=== PATIENT | female | born 1935 | race Caucasian/White ===

== ENCOUNTER 2020-11-22 18:53 | Emergency (ER) | payer OTHER, MEDICARE ==
[2020-11-22] MEDS ORDERED: MORPHINE 2 MG/ML SYR ONE ×2 (19:52→23:30)
[2020-11-22] MEDS ORDERED: ONDANSETRON 4 MG/2 ML VIAL ONE (19:52)
--- NOTE | 2020-11-22 20:25 | RAD REPORT ---
EXAM DESCRIPTION: CT - Head C Spine Mpr Wo Con - 11/22/2020 8:06 pm CLINICAL HISTORY: Head and neck injury status post fall. Head and neck pain COMPARISON: None. TECHNIQUE: Computed axial tomography of the head and cervical spine was obtained. Sagittal and coronal reconstruction was performed. All CT scans are performed using dose optimization technique as appropriate and may include automated exposure control or mA/KV adjustment according to patient size. FINDINGS: Examination is somewhat limited secondary to difficulty with patient positioning. Significant cerebral atrophy is present. An intracranial bleed is not seen. The ventricles are normal in caliber. An extra-axial fluid collect ion is not noted.Fluid within the visualized sinuses and mastoids is not seen A cervical fracture is not visualized. No dislocation is noted. IMPRESSION: No acute intracranial abnormality is seen. A cervical fracture is not visualized. If the patient continues to have symptoms to suggest intracra nial /spinal cord pathology then MRI would be recommended
[2020-11-22 20:26] LABS: Absolute Lymphocytes (CBC) 2.7 K/uL (0.7-4.9); Basophils % 0.5 % (0-1.3); Lymphocytes % 19.8 % (15.3-44.8); MPV 8.7 fL (7.6-11.3)
[2020-11-22 20:28] LABS: Protime INR 1.11
[2020-11-22 20:30] LABS: ALT/SGPT 25 U/L (12-78); AST/SGOT 23 U/L (15-37); Albumin 2.4 g/dL (3.4-5.0); Alkaline Phosphatase 102 U/L (45-117); BUN Blood Urea Nitrogen 20 mg/dL (7-18); Bicarbonate 28 mmol/L (21-32); Bilirubin Direct 0.1 mg/dL (0-0.2); Bilirubin Total 0.5 mg/dL (0.2-1.0); Glucose Level 118 mg/dL (74-106); Protein, Total 6.9 g/dL (6.4-8.2); Sodium Level 147 mmol/L (136-145)
--- NOTE | 2020-11-22 20:54 | RAD REPORT ---
EXAM DESCRIPTION: Familia Single View11/22/2020 8:47 pm CLINICAL HISTORY: Chest pain COMPARISON: none FINDINGS: The lungs appear clear of acute infiltrate. The heart is borderline enlarged IMPRESSION: No acute abnormalities displayed
--- NOTE | 2020-11-22 20:54 | RAD REPORT ---
EXAM DESCRIPTION: RAD - Femur Left - 11/22/2020 8:47 pm CLINICAL HISTORY: Leg pain FINDINGS: Limited exam due to difficulty with patient positioning. Comminuted fracture distal femur would marked displacement of fracture fragments
--- NOTE | 2020-11-22 20:55 | RAD REPORT ---
EXAM DESCRIPTION: RAD - Pelvis - 11/22/2020 8:47 pm CLINICAL HISTORY: Pelvic pain FINDINGS: No fracture or dislocation is seen. Right femoral prosthesis is in good position. Osteoporosis lateral aspect of the left iliac crest is not included in the field of view and is not e valuated
--- NOTE | 2020-11-22 20:56 | RAD REPORT ---
EXAM DESCRIPTION: Red Arthur Left11/22/2020 8:48 pm CLINICAL HISTORY: Left leg pain status post injury FINDINGS: Exam is limited secondary to difficulty with patient positioning. Osteoporosis No acute fracture seen
--- NOTE | 2020-11-22 20:58 | RAD REPORT ---
EXAM DESCRIPTION: RAD - Foot Left 2 View - 11/22/2020 8:50 pm CLINICAL HISTORY: Left Foot pain FINDINGS: No fracture or dislocation is seen. Osteoporosis
--- NOTE | 2020-11-23 00:15 | ER ---
Nurse's Notes [facility] Name: Katalina Piña Age: 85 yrs Sex: Female : 1935 Arrival Date: 11/22/2020 Time: 18:57 Bed 3 Private MD: Diagnosis: Fall;Distal Femur Fracture, Left Presentation: 11/22 19:17 Chief complaint: EMS states: Left Femur Fracture. Coronavirus screen: Client denies ld1 travel out of the [place] in the last 14 days. At this time, the client does not indicate any symptoms associated with coronavirus-19. Ebola Screen: No symptoms or risks identified at this time. Initial Sepsis Screen: Does the patient meet any 2 criteria? Does the patient have a suspected source of infection? No. Patient's initial sepsis screen is negative. Risk Assessment: Do you want to hurt yourself or someone else? Patient reports no desire to harm self or others. Onset of symptoms was November 22, 2020. 19:17 Method Of Arrival: EMS: [facility] ld1 19:17 Acuity: MILANA 2 ld1 Triage Assessment: 19:17 General: Appears in no apparent distress. uncomfortable, Behavior is cooperative, ld1 appropriate for age, anxious. Pain: Unable to use pain scale. Patient is disoriented. EENT: No signs and/or symptoms were reported regarding the EENT system. Neuro: Level of Consciousness is awake, confused, Oriented to none. Cardiovascular: Capillary refill < 3 seconds Patient's skin is warm and dry. Respiratory: Airway is patent Respiratory effort is even, unlabored, Respiratory pattern is regular, symmetrical. GI: Abdomen is flat, non-distended. : No signs and/or symptoms were reported regarding the genitourinary system. Derm: No signs and/or symptoms reported regarding the dermatologic system. Musculoskeletal: No signs and/or symptoms reported regarding the musculoskeletal system. Historical: - Allergies: 19:00 No Known Allergies; jb4 - Home Meds: 21:10 duloxetine 60 mg oral cpDR [Active]; lactulose 10 gram/15 mL (15 mL) Oral soln jb4 [Active]; carvedilol 12.5 mg oral tab [Active]; mirtazapine 15 mg Oral TbDL [Active]; acetaminophen-codeine 300-30 mg Oral tab [Active]; - PMHx: 21:10 Alzheimers; Hypertension; jb4 - PSHx: 21:10 None; jb4 - Immunization history:: Adult Immunizations up to date. - Social history:: Smoking status: Patient denies any tobacco usage or history of. Screenin:00 Abuse screen: Denies threats or abuse. Nutritional screening: No deficits noted. jb4 Tuberculosis screening: No symptoms or risk factors identified. Fall Risk None identified. Assessment: 19:00 General: Appears in no apparent distress. uncomfortable, slender, Behavior is restless. jb4 Pain: Unable to use pain scale. Patient is disoriented. FLACC scale score is 8 out of 10. Neuro: Level of Consciousness is awake, Oriented to none. Cardiovascular: Patient's skin is warm and dry. Respiratory: Airway is patent Respiratory effort is even, unlabored, Respiratory pattern is regular, symmetrical. GI: No signs and/or symptoms were reported involving the gastrointestinal system. : No signs and/or symptoms were reported regarding the genitourinary system. EENT: No signs and/or symptoms were reported regarding the EENT system. Derm: Skin is intact, Skin is pink, warm \T\ dry. Musculoskeletal: Circulation, motion, and sensation intact. Range of motion: limited in all extremities, Swelling present in Left lower extremity above the knee. 19:00 Injury Description: Bruise sustained to left ankle. jb4 19:30 Reassessment: PT to Radiology. jb4 20:49 Reassessment: PT remains in radiology. jb4 21:15 Reassessment: Pt remains A\T\Ox0, remains non verbal, daughter remains at the bedside. jb4 Respiration are even and unlabored with no s/s of distress noted. 22:30 Reassessment: Patient appears in no apparent distress at this time. No changes from jb4 previously documented assessment. Patient and/or family updated on plan of care and expected duration. Pain level reassessed. 23:30 Reassessment: Patient appears in no apparent distress at this time. No changes from jb4 previously documented assessment. Patient and/or family updated on plan of care and expected duration. Pain level reassessed. 11/23 00:30 Reassessment: PT is resting with eyes closed, respirations are even and unlabored. No jb4 s/s of pain or distress noted. Vital Signs: 11/22 19:17 BP 129 / 96; Pulse 79; Resp 18; Pulse Ox 100% on R/A; ld1 21:16 BP 140 / 60; Pulse 88; Resp 18; Pulse Ox 94% on R/A; jb4 22:00 BP 130 / 52; Pulse 85; Resp 18; Temp 96.9(TE); Pulse Ox 91% on R/A; jb4 23:00 BP 136 / 93; Pulse 82; Resp 16; Pulse Ox 91% on R/A; jb4 11/23 00:00 BP 121 / 52; Pulse 80; Resp 18; Pulse Ox 99% on 2 lpm NC; jb4 ED Course: 11/22 18:57 Patient arrived in ED. ll1 19:00 Patient has correct armband on for positive identification. Bed in low position. Call jb4 light in reach. Side rails up X 1. Pulse ox on. NIBP on. 19:01 Reginald Vargas MD is Attending Physician. 7 19:17 Arm band placed on right wrist. ld1 19:21 Triage completed. ld1 19:55 Inserted saline lock: 20 gauge in right forearm, using aseptic technique. Blood oe collected. 20:06 CT Head C Spine In Process Unspecified. EDMS 20:35 Curtis Fulton, RN is Primary Nurse. jb4 20:48 XRAY Chest (1 view) In Process Unspecified. EDMS 20:48 XRAY Pelvis In Process Unspecified. EDMS 20:48 Femur Left XRAY In Process Unspecified. EDMS 20:48 Tib Fib Left XRAY In Process Unspecified. EDMS 20:50 Foot Left 2 View In Process Unspecified. EDMS 23:49 Orthoglass splint: Posterior long leg splint applied on left leg. oe 11/23 03:00 No provider procedures requiring assistance completed. Patient transferred, IV remains jb4 in place. Administered Medications: 11/22 19:50 Drug: Zofran (Ondansetron) 4 mg Route: IVP; Site: right forearm; jb4 19:53 Drug: morphine 2 mg Route: IVP; Site: right forearm; jb4 23:14 Drug: morphine 2 mg Route: IVP; Site: right forearm; jb4 Outcome: 11/23 00:13 ER care complete, transfer ordered by . 7 03:00 Transferred to [facility], Transfer form completed. X-rays sent w/ patient. jb4 03:00 Condition: stable 03:00 Discharge instructions given to family, Instructed on the need for transfer, Demonstrated understanding of instructions. 03:10 Patient left the ED. jb4 Signatures: Dispatcher [employer] EDMS Curtis Fulton RN RN jb4 Gian Plummer Lynsay, RN RN 1 Reginald Vargas MD MD 7 Kate Dennis RN RN ld1 Corrections: (The following items were deleted from the chart) 11/22 20: 19:00 Neuro: Level of Consciousness is awake, alert, obeys commands, Oriented to jb4 person, place, time, situation, jb4 : 19:00 Home Meds: Unable to obtain; jb4 jb4 19:00 PMHx: Unable to obtain; jb4 jb4 : 19:00 PSHx: Unable to obtain; jb4 jb4 21:15 19:00 Musculoskeletal: Circulation, motion, and sensation intact. Range of motion: jb4 limited in all extremities, jb4 11/23 00:10 11/22 22:00 BP 130 / 52; Pulse 85bpm; Resp 18bpm; Pulse Ox 91% RA; jb4 jb4
--- NOTE | 2020-11-23 00:15 | EDPHYS ---
Physician Documentation [facility] Name: Katalina Piña Age: 85 yrs Sex: Female : 1935 Arrival Date: 11/22/2020 Time: 18:57 Bed 3 Private MD: ED Physician Reginald Vargas HPI: 11/22 19:26 This 85 yrs old Female presents to ER via EMS with complaints of Leg Pain. 7 19:26 The patient presents with an injury. The complaints affect the femur. Context: The 7 problem was sustained at a long-term or assisted living facility, resulted from an unknown cause, the patient is not able to bear weight, the patient is not able to ambulate, Problem is a result from a previous injury:. Onset: The symptoms/episode began/occurred at an unknown time. Modifying factors: The symptoms are alleviated by nothing. the symptoms are aggravated by nothing. Associated signs and symptoms: Pertinent negatives unknown. Treatment prior to arrival includes: no previous treatment. Severity of symptoms: At their worst the symptoms were moderate, earlier today, in the emergency department the symptoms are unchanged. Per EMS patient found to have a left femur fracture at long-term today. Patient unable to provide any information due to advanced dementia.. Historical: - Allergies: 19:00 No Known Allergies; jb4 - Home Meds: 21:10 duloxetine 60 mg oral cpDR [Active]; lactulose 10 gram/15 mL (15 mL) Oral soln jb4 [Active]; carvedilol 12.5 mg oral tab [Active]; mirtazapine 15 mg Oral TbDL [Active]; acetaminophen-codeine 300-30 mg Oral tab [Active]; - PMHx: 21:10 Alzheimers; Hypertension; jb4 - PSHx: 21:10 None; jb4 - Immunization history:: Adult Immunizations up to date. - Social history:: Smoking status: Patient denies any tobacco usage or history of. ROS: 19:29 Unable to obtain ROS due to baseline dementia. 7 Exam: 19:29 Head/Face: Normocephalic, atraumatic. Eyes: Pupils equal round and reactive to light, 7 extra-ocular motions intact. Lids and lashes normal. Conjunctiva and sclera are non-icteric and not injected. Cornea within normal limits. Periorbital areas with no swelling, redness, or edema. Neck: Trachea midline, no thyromegaly or masses palpated, and no cervical lymphadenopathy. Supple, full range of motion without nuchal rigidity, or vertebral point tenderness. No Meningismus. Chest/axilla: Normal chest wall appearance and motion. Nontender with no deformity. No lesions are appreciated. Cardiovascular: Regular rate and rhythm with a normal S1 and S2. No gallops, murmurs, or rubs. Normal PMI, no JVD. No pulse deficits. Respiratory: Lungs have equal breath sounds bilaterally, clear to auscultation and percussion. No rales, rhonchi or wheezes noted. No increased work of breathing, no retractions or nasal flaring. Abdomen/GI: Soft, non-tender, with normal bowel sounds. No distension or tympany. No guarding or rebound. No evidence of tenderness throughout. Back: No spinal tenderness. No costovertebral tenderness. Full range of motion. 19:29 Constitutional: The patient appears in no acute distress, alert, awake, non verbal, baseline 19:29 Musculoskeletal/extremity: Extremities: noted in the left ankle, left leg, left thigh: decreased ROM, ecchymosis, the patient is contracted, diffusely, ROM: the patient is contracted, Circulation is intact in all extremities. Pulses: are normal with no appreciated deficits, Perfusion: the patient is normally perfused throughout, Perfusion: the extremity is normally perfused throughout, Sensation intact. Joints: the left ankle displays swelling, ecchymosis, Weight bearing: is unable to bear weight. 19:29 Skin: 19:29 Neuro: Orientation: unable to test, the patient has a history of dementia, Mentation: unable to test, the patient has a history of dementia, Memory: unable to test, the patient has a history of dementia, Cranial nerves: unable to test, the patient has a history of dementia, Cerebellar function: unable to test, the patient has a history of dementia, Motor: the patient is contracted, unable to test, the patient has a history of dementia, Sensation: unable to test, the patient has a history of dementia, Gait: not tested. seizure activity, is not displayed by the patient, Abnormal movements: there are no abnormal movements. Vital Signs: 19:17 BP 129 / 96; Pulse 79; Resp 18; Pulse Ox 100% on R/A; ld1 21:16 BP 140 / 60; Pulse 88; Resp 18; Pulse Ox 94% on R/A; jb4 22:00 BP 130 / 52; Pulse 85; Resp 18; Temp 96.9(TE); Pulse Ox 91% on R/A; jb4 23:00 BP 136 / 93; Pulse 82; Resp 16; Pulse Ox 91% on R/A; jb4 11/23 00:00 BP 121 / 52; Pulse 80; Resp 18; Pulse Ox 99% on 2 lpm NC; jb4 MDM: 00:07 Differential diagnosis: dislocation, closed fracture, contusion, abrasion. Data [facility] reviewed: vital signs, nurses notes, EMS record, long-term records, lab test result(s), CBC, electrolytes, urinalysis, radiologic studies, CT scan, plain films. Data interpreted: Pulse oximetry: on room air is 96 %. Interpretation: normal. Counseling: I had a detailed discussion with the patient and/or guardian regarding: the historical points, exam findings, and any diagnostic results supporting the discharge/admit diagnosis, lab results, radiology results, the need to transfer to another facility, for higher level of care, [facility][1] does not immediately have the required specialist. Response to treatment: the patient's symptoms have mildly improved after treatment. Physician consultation: Atif Silva MD Attempted to contact [facility] multiple times over 2- 2.5 hr period without any call back. Discussed with cook house supervisor who also attempted to contact [facility] without success. Will try to contact another facility with orthopedics.. 00:13 Patient medically screened. [facility] 11/22 19:19 Order name: Basic Metabolic Panel; Complete Time: 20:34 [facility] 11/22 19:19 Order name: CBC with Diff; Complete Time: 21:08 [facility] 11/22 19:19 Order name: Type And Screen; Complete Time: 21:15 [facility] 11/22 19:19 Order name: LFT's; Complete Time: 20:34 [facility] 11/22 19:19 Order name: Protime (+inr); Complete Time: 21:08 [facility] 11/22 19:19 Order name: Ptt, Activated; Complete Time: 21:08 [facility] 11/22 19:19 Order name: XRAY Chest (1 view); Complete Time: 21:08 [facility] 11/22 19:19 Order name: XRAY Pelvis; Complete Time: 21:08 [facility] 11/22 19:19 Order name: Femur Left XRAY; Complete Time: 21:08 [facility] 11/22 19:19 Order name: Tib Fib Left XRAY; Complete Time: 21:08 [facility] 11/23 01:15 Order name: SARS-COV-2 RT PCR [facility] 11/22 19:19 Order name: Labs collected and sent; Complete Time: 20:35 [facility] 11/22 19:19 Order name: Urine Dipstick-Ancillary (obtain specimen); Complete Time: 02:25 [facility] 11/22 19:34 Order name: CT Head C Spine; Complete Time: 20:34 [facility] 11/22 20:49 Order name: Foot Left 2 View; Complete Time: 21:08 [facility] 11/22 21:36 Order name: Splint - Long Leg: Posterior w/ Stirrup; Complete Time: 00:08 [facility] 11/22 22:15 Order name: Chopra; Complete Time: 00:08 jb4 Administered Medications: 11/22 19:50 Drug: Zofran (Ondansetron) 4 mg Route: IVP; Site: right forearm; jb4 19:53 Drug: morphine 2 mg Route: IVP; Site: right forearm; jb4 23:14 Drug: morphine 2 mg Route: IVP; Site: right forearm; jb4 Disposition: 11/23/20 00:13 Transfer ordered to [facility]. Diagnosis are Fall, Distal Femur Fracture, Left. - Reason for transfer: Higher level of care. - Accepting physician is Dr. James. - Condition is Stable. - Problem is new. - Symptoms have improved. Signatures: Dispatcher [employer] EDMS Curtis Fulton RN RN jb4 Reginald Vargas MD MD 7 Corrections: (The following items were deleted from the chart) 19:50 19:20 Knee Left 3 View+RAD.RAD.BRZ ordered. EDMS EDMS 19:50 19:20 Ankle Left 3 View+RAD.RAD.BRZ ordered. EDPA EDMS 20:49 19:20 Foot Left 3 View+RAD.RAD.BRZ ordered. EDPA EDMS 21:10 19:00 Home Meds: Unable to obtain; jb4 jb4 21:10 19:00 PMHx: Unable to obtain; jb4 jb4 21:10 19:00 PSHx: Unable to obtain; jb4 jb4 11/23 00:37 11/22 23:51 CORONAVIRUS+MR.VARUN.EMYZ ordered. EDMS EDMS 11/23 03:10 00:13 11/23/2020 00:13 Transfer ordered to [facility]. Diagnosis is Fall; jb4 Distal Femur Fracture, Left. Reason for transfer: Higher level of care. Accepting physician is Dr. James. Condition is Stable. Problem is new. Symptoms have improved. [id number]
[2020-11-23 03:20] VITALS: TEMP 96.9
[2020-11-23 03:23] VITALS: BP 121/52; O2SAT 99
== END 2020-11-23 03:10 | disposition short-term general hospital (02) ==
LOC: ER 18:53
PROC: 2W3MX1Z Immobilization of Left Lower Extremity using Splint (ICD-10-PCS; principal; 2020-11-23)
DX: S72.402A Unspecified fracture of lower end of left femur, initial encounter for closed fracture (principal); W19.XXXA Unspecified fall, initial encounter; Y92.129 Unspecified place in nursing home as the place of occurrence of the external cause; I10 Essential (primary) hypertension; G30.9 Alzheimer's disease, unspecified; F02.80 Dementia in other diseases classified elsewhere, unspecified severity, without behavioral disturbance, psychotic disturbance, mood disturbance, and anxiety; Z20.822 Contact with and (suspected) exposure to COVID-19
CPT/HCPCS: 85025; 80048; 36415; 86900; 86850; 85610; 86901; 80076; 85730; 70450; 72125; 71045; 72170; 73620; 73552; 73590; 96375; 96374; 99285; 29505; U0003; J2270 ×2; J2405